=== PATIENT | female | born 2000 | race Hispanic/Latino ===

== ENCOUNTER 2023-08-18 08:22 | Outpatient (CLI) | payer OTHER | END 2023-08-18 08:23 | disposition home or self-care (01) | LOC: BICULT 08:22 | PROVIDERS: ATTEND Nurse Practitioner Women's Health | DX: Z34.82 Encounter for supervision of other normal pregnancy, second trimester (principal); Z3A.21 21 weeks gestation of pregnancy | CPT/HCPCS: 76805 ==

== ENCOUNTER 2023-12-01 17:59 | Emergency (ER) | payer OTHER | END 2023-12-01 18:12 | disposition home or self-care (01) | LOC: ERS 17:59 | DX: O99.891 Other specified diseases and conditions complicating pregnancy (principal); M25.561 Pain in right knee; Z3A.36 36 weeks gestation of pregnancy | CPT/HCPCS: 99282 ==